=== PATIENT | female | born 1985 | race American Indian/Alaskan Native ===

== ENCOUNTER 2020-05-04 09:48 | Outpatient (CLI) | payer OTHER | END 2020-05-04 10:51 | disposition home or self-care (01) | LOC: NST 09:48 | PROVIDERS: ATTEND Obstetrics & Gynecology | DX: Z34.83 Encounter for supervision of other normal pregnancy, third trimester (principal) ==

== ENCOUNTER 2020-05-11 08:50 | Outpatient (CLI) | payer OTHER | END 2020-05-11 09:58 | disposition home or self-care (01) | LOC: NST 08:50 | PROVIDERS: ATTEND Obstetrics & Gynecology | DX: Z34.83 Encounter for supervision of other normal pregnancy, third trimester (principal) ==

== ENCOUNTER 2020-05-20 08:37 | Outpatient (CLI) | payer OTHER | END 2020-05-20 09:30 | disposition home or self-care (01) | LOC: NST 08:37 | PROVIDERS: ATTEND Obstetrics & Gynecology | DX: Z34.83 Encounter for supervision of other normal pregnancy, third trimester (principal) ==

== ENCOUNTER 2020-05-31 15:36 | Inpatient (IN) | payer OTHER ==
[~2020-05-31] VITALS: Ht 162.6 cm; Wt 3.2 kg
[2020-06-08] MEDS ORDERED: PRENATAL PLUS1 EAC1 PO (11:32)
== END 2020-06-10 17:35 | disposition home or self-care (01) | DRG 788 ==
LOC: LDR 06-08 10:47 → SURG-SUITE 06-08 10:47 → O/R 06-08 13:40 → SURG-SUITE 06-08 15:25 → OB/GYN 07-01 12:45
PROVIDERS: ADMIT Obstetrics & Gynecology; ATTEND Obstetrics & Gynecology
PROC: 4A1HXCZ Monitoring of Products of Conception, Cardiac Rate, External Approach (ICD-10-PCS; 2020-06-08)
PROC: 10D00Z1 Extraction of Products of Conception, Low, Open Approach (ICD-10-PCS; principal; 2020-06-08 12:00)
DX: O60.14X0 Preterm labor third trimester with preterm delivery third trimester, not applicable or unspecified (principal); O64.1XX0 Obstructed labor due to breech presentation, not applicable or unspecified; Z3A.36 36 weeks gestation of pregnancy; Z37.0 Single live birth

== ENCOUNTER 2020-06-03 10:23 | Outpatient (CLI) | payer OTHER | END 2020-06-03 11:23 | disposition home or self-care (01) | LOC: NST 10:23 | PROVIDERS: ATTEND Obstetrics & Gynecology | DX: Z34.83 Encounter for supervision of other normal pregnancy, third trimester (principal) ==

== ENCOUNTER → 2020-06-06 11:29 | Outpatient (CLI) | payer OTHER ==
[~2020-06-06 11:29] MED LIST: PRENATAL PLUS1 EAC1 PO
== END | disposition home or self-care (01) ==
LOC: NST 11:29
PROVIDERS: ATTEND Obstetrics & Gynecology
DX: Z34.83 Encounter for supervision of other normal pregnancy, third trimester (principal)